=== PATIENT | male | born 1970 | race Caucasian/White ===

== ENCOUNTER 2020-07-30 09:23 | Inpatient (IN) | payer MEDICAID, MEDICARE, SELFPAY ==
[~2020-07-30] VITALS: Ht 188 cm; Wt 90.9 kg
[~2020-07-30 09:23] MED LIST: BENZ1TAB10 PO; FLUT16H NASAL; LURA40TA2 PO
[2020-07-30] MEDS ORDERED: DiphenhydrAMINE HCL 50 MG/ML VIAL ONE (15:17)
[2020-07-30] MEDS ORDERED: LORazepam 2 MG/ML VIAL ONE (15:17)
[2020-07-30] MEDS ORDERED: HALOPERIDOL LACTATE 5 MG/ML VIAL ONE (15:17)
[2020-07-30] MEDS ORDERED: BUSP5TAB20 PO (15:27)
[2020-07-30] MEDS ORDERED: RISP1TAB48 PO (15:27)
[2020-07-30] MEDS ORDERED: ARIP2 PO (15:27)
[2020-07-30] MEDS ORDERED: QUET50TA15 PO (15:27)
[2020-07-30] MEDS ORDERED: HALOPERIDOL LACTATE 5 MG/ML VIAL IM ONE (15:30)
[2020-07-30] MEDS ORDERED: DiphenhydrAMINE HCL 50 MG/ML VIAL IM ONE (15:30)
[2020-07-30] MEDS ORDERED: LORazepam 2 MG/ML VIAL IM ONE (15:30)
[2020-07-30 16:54] LABS: BASOPHILS % (AUTO) 0.4 % (0.0-2.0); EOSINOPHILS % (AUTO) 0.7 % (1.0-6.0); HEMATOCRIT 39.9 % (41-53); HEMOGLOBIN 13.8 g/dL (13.5-17.5); LYMPHOCYTES # (AUTO) 1.2 K/uL (1.0-4.8); LYMPHOCYTES % (AUTO) 17.3 % (22.0-44.0); MEAN CORPUSCULAR HEMOGLOBIN 31.8 pg (26.0-34.0); MEAN CORPUSCULAR HGB CONC 34.6 G/dL (31.0-37.0); MEAN CORPUSCULAR VOLUME 92 fL (80-100); MONOCYTES % (AUTO) 14.4 % (2.0-9.0); NEUTROPHILS # (AUTO) 4.6 K/uL (1.8-7.7); NEUTROPHILS % (AUTO) 67.2 % (40.0-70.0); PLATELET COUNT (AUTO) 304 K/uL (150-450); RED BLOOD CELL COUNT(AUTO) 4.33 MIL/uL (4.50-5.90); RED CELL DISTRIBUTION WIDTH 13.4 % (11.5-14.5)
[2020-07-30 17:04] LABS: ANION GAP 8 mmol/L (8-16); CALCIUM, TOTAL 9.3 mg/dL (8.8-10.5); CARBON DIOXIDE 29 mmol/L (22-29); CHLORIDE 108 mmol/L (98-107); CREATININE 0.88 mg/dL (0.60-1.30); GLOMERULAR FILTR. RATE CALC > 60 mL/min (>60); GLUCOSE,RANDOM 144 mg/dL (70-110); POTASSIUM 4.2 mmol/L (3.5-5.1); SODIUM SERUM 145 mmol/L (136-145); UREA NITROGEN, BLOOD 18 mg/dL (7-18)
[2020-07-30 17:09] LABS: ALANINE AMINOTRANSFERASE 556 U/L (12-78); ALBUMIN 4.1 g/dL (3.4-5.0); ALKALINE PHOSPHATASE 105 U/L (46-116); ASPARTATE AMINOTRANSFERASE 194 U/L (15-37); BILIRUBIN,TOTAL 0.7 mg/dL (0.1-1.0); TOTAL PROTEIN, SERUM 7.6 g/dL (6.4-8.2)
[2020-07-30 19:43] LABS: COVID AG,FIA SOURCE NASOPHARYNGEAL
[2020-07-31 01:17] LABS: AMPHET/METH SCREEN,URINE NEGATIVE (NEGATIVE); BARBITURATE SCREEN, URINE NEGATIVE (NEGATIVE); BENZODIAZEPINES SCREEN,URINE NEGATIVE (NEGATIVE); CANNABINOID SCREEN,URINE NEGATIVE (NEGATIVE); COCAINE SCREEN,URINE NEGATIVE (NEGATIVE); METHADONE SCREEN, URINE NEGATIVE (NEGATIVE); OPIATE SCREEN,URINE NEGATIVE (NEGATIVE)
[2020-07-31 01:26] LABS: PHENCYCLIDINE SCREEN,URINE NEGATIVE (NEGATIVE)
[2020-07-31] MEDS ORDERED: ZOLPIDEM TARTRATE 10 MG TABLET PO PRN (16:00)
[2020-07-31] MEDS ORDERED: HydrOXYzine PAMOATE 50 MG CAPSULE PO PRN (16:00)
[2020-07-31] MEDS ORDERED: PALIPERIDONE PALMITATE 234 MG/1.5 ML SYRINGE IM ONE (16:00)
[2020-07-31] MEDS ORDERED: ACETAMINOPHEN 325 MG TABLET PO ONE (16:00)
[2020-07-31] MEDS ORDERED: GuaiFENesin/D-METHORPHAN [SUGAR-FREE] 200-20MG/10 ML SYRUP UDCUP PO PRN (16:00)
[2020-07-31] MEDS ORDERED: OLANZapine 5 MG RAPDIS TABLET PO PRN (16:00)
[2020-07-31] MEDS: LORazepam 2 MG TABLET PO PRN (16:03)
[2020-07-31] MEDS: OLANZapine 5 MG RAPDIS TABLET PO SCH (21:00)
[2020-07-31] MEDS: THIAMINE 100 MG TABLET PO SCH (21:00)
[2020-08-01] MEDS: LORazepam 2 MG TABLET PO PRN (09:18)
[2020-08-01] MEDS: THIAMINE 100 MG TABLET PO SCH ×2 (09:18→16:31)
[2020-08-01] MEDS: FOLIC ACID 1 MG TABLET PO SCH (09:18)
[2020-08-01] MEDS: MULTIVITAMINS WITH MINERALS, THERAPEUTIC TABLET PO SCH (09:18)
[2020-08-01] MEDS ORDERED: HALOPERIDOL LACTATE 5 MG/ML VIAL IM ONE (11:45)
[2020-08-01] MEDS: NALTREXONE HCL 50 MG TABLET PO SCH (11:45)
[2020-08-01] MEDS ORDERED: LOPERAMIDE HCL 2 MG CAPSULE PO PRN (11:45)
[2020-08-01] MEDS: OMEGA-3/DHA/EPA/FISH OIL 1,000 MG CAPSULE PO SCH (11:45)
[2020-08-01] MEDS ORDERED: LORazepam 2 MG/ML VIAL IM ONE (11:45)
[2020-08-01] MEDS ORDERED: PROMETHAZINE HCL 25 MG TABLET PO PRN (11:45)
[2020-08-01] MEDS ORDERED: DiphenhydrAMINE HCL 50 MG/ML VIAL IM ONE (11:45)
[2020-08-01] MEDS ORDERED: TUBERCULIN, PURIFIED PROTEIN DERIVATIVE 5 TU/0.1 ML SYRINGE ID ONE (11:45)
[2020-08-01] MEDS ORDERED: MAG HYDROX/AL HYDROX/SIMETH ES 30 ML SUSPENSION UDCUP PO PRN (11:45)
[2020-08-01] MEDS ORDERED: ACETAMINOPHEN 325 MG TABLET PO PRN (11:45)
[2020-08-01] MEDS ORDERED: MAGNESIUM HYDROXIDE SUSPENSION 30 ML UDCUP PO PRN (11:45)
[2020-08-01] MEDS: OLANZapine 5 MG RAPDIS TABLET PO SCH (20:32)
[2020-08-02] MEDS ORDERED: INFLUENZA VIRUS VACCINE QVS 2020-21 (6MO+)/PF 60 MCG/0.5 ML SYRINGE IM ONE (01:30)
[2020-08-02] MEDS ORDERED: PNEUMOCOCCAL VACCINE POLYVALENT 0.5 ML VIAL [PPSV23] IM ONE (01:30)
[2020-08-02] MEDS: OMEGA-3/DHA/EPA/FISH OIL 1,000 MG CAPSULE PO SCH (08:54)
[2020-08-02] MEDS: MULTIVITAMINS WITH MINERALS, THERAPEUTIC TABLET PO SCH (08:55)
[2020-08-02] MEDS: FOLIC ACID 1 MG TABLET PO SCH (08:55)
[2020-08-02] MEDS: THIAMINE 100 MG TABLET PO SCH ×2 (08:55→16:41)
[2020-08-02] MEDS: LORazepam 2 MG TABLET PO PRN ×2 (08:55→16:41)
[2020-08-02] MEDS: NALTREXONE HCL 50 MG TABLET PO SCH (08:55)
[2020-08-02 16:06] VITALS: BP 120/71
[2020-08-02] MEDS: OLANZapine 5 MG RAPDIS TABLET PO SCH (21:00)
[2020-08-03] MEDS: FOLIC ACID 1 MG TABLET PO SCH (08:53)
[2020-08-03] MEDS: MULTIVITAMINS WITH MINERALS, THERAPEUTIC TABLET PO SCH (08:53)
[2020-08-03] MEDS: THIAMINE 100 MG TABLET PO SCH ×2 (08:54→17:15)
[2020-08-03] MEDS: LORazepam 2 MG TABLET PO PRN (08:54)
[2020-08-03] MEDS: NALTREXONE HCL 50 MG TABLET PO SCH (08:54)
[2020-08-03] MEDS: OMEGA-3/DHA/EPA/FISH OIL 1,000 MG CAPSULE PO SCH (08:54)
[2020-08-03 09:54] VITALS: BP 116/66
[2020-08-03] MEDS ORDERED: PALIPERIDONE PALMITATE 234 MG/1.5 ML SYRINGE IM ONE (14:00)
[2020-08-03 16:15] VITALS: BP 132/70
[2020-08-03] MEDS: OLANZapine 5 MG RAPDIS TABLET PO SCH (20:48)
[2020-08-04 05:17] VITALS: BP 122/74
[2020-08-04 08:07] VITALS: BP 112/67
[2020-08-04] MEDS: OMEGA-3/DHA/EPA/FISH OIL 1,000 MG CAPSULE PO SCH (08:48)
[2020-08-04] MEDS: THIAMINE 100 MG TABLET PO SCH ×2 (08:48→16:52)
[2020-08-04] MEDS: MULTIVITAMINS WITH MINERALS, THERAPEUTIC TABLET PO SCH (08:48)
[2020-08-04] MEDS: NALTREXONE HCL 50 MG TABLET PO SCH (08:48)
[2020-08-04] MEDS: FOLIC ACID 1 MG TABLET PO SCH (08:48)
[2020-08-04] MEDS: LORazepam 2 MG TABLET PO PRN ×2 (08:48→16:52)
[2020-08-04] MEDS ORDERED: PALIPERIDONE PALMITATE 156 MG/ML SYRINGE IM ONE (09:00)
[2020-08-04 16:22] VITALS: BP 159/79
[2020-08-04] MEDS: OLANZapine 5 MG RAPDIS TABLET PO SCH (20:20)
[2020-08-05 01:35] VITALS: BP 125/68
[2020-08-05 08:07] VITALS: BP 123/65
[2020-08-05] MEDS: NALTREXONE HCL 50 MG TABLET PO SCH (08:19)
[2020-08-05] MEDS: THIAMINE 100 MG TABLET PO SCH ×2 (08:19→16:48)
[2020-08-05] MEDS: FOLIC ACID 1 MG TABLET PO SCH (08:19)
[2020-08-05] MEDS: MULTIVITAMINS WITH MINERALS, THERAPEUTIC TABLET PO SCH (08:19)
[2020-08-05] MEDS: LORazepam 2 MG TABLET PO PRN ×2 (08:19→16:48)
[2020-08-05] MEDS: OMEGA-3/DHA/EPA/FISH OIL 1,000 MG CAPSULE PO SCH (08:19)
[2020-08-05 16:18] VITALS: BP 123/73
[2020-08-05] MEDS: OLANZapine 5 MG RAPDIS TABLET PO SCH (20:48)
[2020-08-06 06:59] VITALS: BP 118/69
[2020-08-06 08:07] VITALS: BP 108/67
[2020-08-06] MEDS: THIAMINE 100 MG TABLET PO SCH ×2 (10:10→16:27)
[2020-08-06] MEDS: OMEGA-3/DHA/EPA/FISH OIL 1,000 MG CAPSULE PO SCH (10:10)
[2020-08-06] MEDS: FOLIC ACID 1 MG TABLET PO SCH (10:10)
[2020-08-06] MEDS: NALTREXONE HCL 50 MG TABLET PO SCH (10:10)
[2020-08-06] MEDS: MULTIVITAMINS WITH MINERALS, THERAPEUTIC TABLET PO SCH (10:10)
[2020-08-06] MEDS: LORazepam 2 MG TABLET PO PRN ×2 (10:11→16:27)
[2020-08-06] MEDS ORDERED: OMEG-135 PO (15:03)
[2020-08-06] MEDS ORDERED: OLAN5TAB30 PO (15:03)
[2020-08-06] MEDS ORDERED: NALT50TA PO (15:03)
[2020-08-06 16:14] VITALS: BP 118/72
[2020-08-06] MEDS ORDERED: OLAN10TA22 PO (16:32)
[2020-08-06] MEDS ORDERED: OLANZapine 10 MG RAPDIS TABLET PO SCH (21:00)
[2020-08-07 05:13] VITALS: BP 124/68
[2020-08-07 08:36] VITALS: BP 134/78
[2020-08-07] MEDS: FOLIC ACID 1 MG TABLET PO SCH (08:40)
[2020-08-07] MEDS: OMEGA-3/DHA/EPA/FISH OIL 1,000 MG CAPSULE PO SCH (08:40)
[2020-08-07] MEDS: THIAMINE 100 MG TABLET PO SCH (08:40)
[2020-08-07] MEDS: NALTREXONE HCL 50 MG TABLET PO SCH (08:40)
[2020-08-07] MEDS: MULTIVITAMINS WITH MINERALS, THERAPEUTIC TABLET PO SCH (08:40)
[2020-08-07] MEDS ORDERED: PALIPERIDONE PALMITATE 156 MG/ML SYRINGE IM ONE (09:00)
[2020-08-07] MEDS ORDERED: LORazepam 2 MG TABLET PO PRN (18:45)
[2020-08-07] MEDS ORDERED: OLANZapine 5 MG RAPDIS TABLET PO PRN (18:45)
[2020-08-07] MEDS ORDERED: ZOLPIDEM TARTRATE 10 MG TABLET PO PRN (18:45)
== END 2020-08-07 09:00 | disposition home or self-care (01) | DRG 885 ==
LOC: EMS 09:23 → B3A 08-01 09:50
PROVIDERS: ADMIT Psychiatry & Neurology Psychiatry; ATTEND Psychiatry & Neurology Psychiatry
DX: F20.9 Schizophrenia, unspecified (principal); F17.210 Nicotine dependence, cigarettes, uncomplicated; Z20.828 Contact with and (suspected) exposure to other viral communicable diseases; J45.909 Unspecified asthma, uncomplicated; Z55.9 Problems related to education and literacy, unspecified; Z59.0 Homelessness; Z65.3 Problems related to other legal circumstances; Z91.19 Patient's noncompliance with other medical treatment and regimen; Z28.21 Immunization not carried out because of patient refusal; Z79.899 Other long term (current) drug therapy
CPT/HCPCS: 80074; 87426; 90686; 96372; 99291; G0480; J1200; J1630; J2060